=== PATIENT | male | born 1980 | race African-American/Black ===

== ENCOUNTER 2017-03-24 15:22 | Emergency (ER) | payer SELFPAY ==
[2017-03-24 14:03] LABS: BASOPHILS 0 %; EOSINOPHILS 3.3 %; EOSINOPHILS ABSOLUTE 0.08 10/3/uL (0.0-0.53); HEMOGLOBIN 8.1 g/dL (13.6-17.8); IMMATURE GRANULOCYTES 0.8 %; IMMATURE GRANULOCYTES ABSOLUTE 0.02 10/3/uL (0.0-0.11); LYMPHOCYTES 26.4 %; LYMPHOCYTES ABSOLUTE 0.63 10/3/uL (0.67-4.30); MEAN CORPUS HGB CONC 31.2 g/dL (32.0-36.0); MEAN CORPUSCULAR HEMOGLOB 29.9 pg (26.0-34.0); MEAN CORPUSCULAR VOLUME 95.9 fL (80-100); MEAN PLATELET VOLUME 8.8 fL (9.2-13.0); MONOCYTES 14.2 %; MONOCYTES ABSOLUTE 0.34 10/3/uL (0.21-1.20); NEUTROPHILS 55.3 %; NEUTROPHILS ABSOLUTE 1.32 10/3/uL (2.02-8.40); PLATELET COUNT 94 10/3/uL (150-400); RBC DISTRIBUTION WIDTH 18.5 % (12.0-16.0); RED CELL COUNT 2.71 10/6/uL (4.7-6.1)
[2017-03-24 14:04] LABS: ER CBC TAT 0 Hrs 05 Mins; WHITE BLOOD CELLS 2.4 10/3/uL (4.5-10.5)
[2017-03-24 14:05] LABS: MANUAL DIFF NO %
[2017-03-24 14:11] LABS: INTERNATIONAL NORMAL RATI 1.3 UNITS (-); PARTIAL THROMBO TIME 41.1 SEC (22.5-37.2)
[2017-03-24 14:18] LABS: A/G RATIO 0.4 (0.7-1.9); ALBUMIN 2.5 G/DL (3.5-5.0); ALKALINE PHOSPHATASE 143 U/L (45-117); BUN (BLOOD UREA NITROGEN) 45 MG/DL (6-23); CALCIUM, SERUM 8.2 MG/DL (8.5-10.4); CHLORIDE, SERUM 103 MMOL/L (96-112); CO2 (CARBON DIOXIDE) 27 MMOL/L (24-34); CREATININE 5.47 MG/DL (0.70-1.30); GFR AFRICAN AMERICAN 14 ML/MIN (>=60); GFR NON AFRICAN AMERICAN 12 ML/MIN (>=60); GLOBULIN 5.9 G/DL (2.5-4.1); GLUCOSE, SERUM 167 MG/DL (60-99); POTASSIUM, SERUM 4.3 MMOL/L (3.5-5.3); SGOT(AST) 27 U/L (5-40); SGPT(ALT) 16 U/L (5-65); SODIUM, SERUM 138 MMOL/L (135-148); TOTAL BILIRUBIN 0.5 MG/DL (0-1.2); TOTAL PROTEIN 8.4 G/DL (6.0-8.5)
== END 2017-03-24 16:57 | disposition home or self-care (01) ==
LOC: ER 15:22
PROVIDERS: Physician Assistant
DX: D57.1 Sickle-cell disease without crisis (principal); N18.9 Chronic kidney disease, unspecified
CPT/HCPCS: 71010; 80053; 83690; 83880; 85025; 85610; 85730; 96374; 96375; 99284; J1170; J1200; J2405